=== PATIENT | female | born 1975 | race African-American/Black ===

== ENCOUNTER 2023-06-18 18:54 | Emergency (ER) | payer MEDICARE, OTHER ==
[2023-06-18 20:05] LABS: SARS-CoV-2 NAA Rapid Test DETECTED (NotDetected)
== END 2023-06-18 20:28 | disposition home or self-care (01) ==
LOC: CSHERS 18:54
DX: U07.1 COVID-19 (principal)
CPT/HCPCS: 99283

== ENCOUNTER 2024-08-18 22:34 | Emergency (ER) | payer OTHER, SELFPAY | END 2024-08-19 00:15 | disposition home or self-care (01) | LOC: CSHERS 22:34 | DX: J01.00 Acute maxillary sinusitis, unspecified (principal); R59.1 Generalized enlarged lymph nodes | CPT/HCPCS: 87428; 99283 ==

== ENCOUNTER 2025-05-08 23:35 | Emergency (ER) | payer OTHER, MEDICAID ==
[2025-05-09 00:21] LABS: #Basophils Less than 0.03 10x3/uL (0.0-0.2); #Eosinophils 0.55 10x3/uL (0.0-0.5); #Monocytes 0.78 10x3/uL (0.0-1.1); #Neutrophils 6.48 10x3/uL (1.5-8.4); %Basophils 0.2 % (0.0-2.0); %Eosinophils 5.4 % (0.0-6.0); %Lymphocytes 23.1 % (18.0-47.0); %Monocytes 7.6 % (0.0-10.0); %Neutrophils 63.4 % (40.0-75.0); Hematocrit 39.0 % (34.9-44.5); Hemoglobin 12.6 g/dL (12.0-15.5); Mean Corpuscular Hemoglobin 27.9 pg (27.0-33.0); Mean Corpuscular Volume 86.3 fL (81.6-98.3); Platelet Count 371 10x3/uL (150-450); Red Blood Cell (RBC) Count 4.52 10x6/uL (3.90-5.03); White Blood Cell (WBC) Count 10.22 10x3/uL (3.5-10.5)
[2025-05-09 00:35] LABS: BHCG - Serum Negative (NEGATIVE); Pregs Control Background? CLEAR/WHITE (CLR/WHITE); Pregs Control Bar Appear? YES (CONTROL BAR)
[2025-05-09 00:39] LABS: ALT (SGPT) 13 U/L (Less than 34); AST (SGOT) 17 U/L (11-34); Albumin 3.7 g/dL (3.1-4.5); Alkaline Phosphatase 67 U/L (40-110); Anion Gap 13 mmol/L (10-20); BUN (Urea Nitrogen) 18 mg/dL (7.0-18.7); Bilirubin, Total 0.2 mg/dL (0.3-1.2); Calc. Creatinine Clearance 0 mL/min (70-130); Calcium 8.3 mg/dL (7.8-10.44); Carbon Dioxide 21 mmol/L (22-29); Chloride 107 mmol/L (98-107); Globulin 2.4 g/dL (2.4-3.5); Glucose 124 mg/dL (70-105); Potassium 4.2 mmol/L (3.5-5.1); Sodium 137 mmol/L (136-145)
[2025-05-09 00:44] LABS: D-Dimer Test Less than 0.19 mcg/mL (0.19-0.50); INR-International Normal Ratio 1.0; PTT 24.0 sec (22.0-33.0); Prothrombin Time 10.8 sec (9.5-12.1)
[2025-05-09 00:46] LABS: Acetaminophen Less than 10 mcg/mL (Less than 10); Magnesium 1.9 mg/dL (1.6-2.6); Salicylate Less than 8.0 mg/dL (Less than 8.0); Troponin I Less than 0.010 ng/mL (< 0.028)
== END 2025-05-09 03:17 | disposition home or self-care (01) ==
LOC: CSHERS 23:35
DX: E86.0 Dehydration (principal); R29.700 NIHSS score 0
CPT/HCPCS: 70496; 70498; 71045; 80053; 80307; 83735; 84484; 84703; 85025; 85379; 85610; 85730; 87428; 93005